=== PATIENT | male | born 1945 | race Caucasian/White ===

== ENCOUNTER 2018-11-01 13:39 | Emergency (ER) | payer MEDICARE ==
[2018-11-01 14:15] VITALS: BP 120/64
--- NOTE | 2018-11-01 14:21 | UC ---
Skin Complaint HPI - HPI Summary HPI Summary: 73 yo male presents with redness, pain, and swelling around nail of right 4th digit for the last 2 days. He poked it at home and had bleeding and clear drainage. Symptoms have continued. Denies fever or injury - History of Current Complaint Chief Complaint: UCSkin Stated Complaint: POSSIBLE INFECTION TO FINGER ON RIGHT HAND Hx Obtained From: Patient Onset/Duration: Sudden Onset Onset Severity: Mild Current Severity: Moderate Pain Intensity: 7 Pain Scale Used: 0-10 Numeric - Allergy/Home Medications Allergies/Adverse Reactions: Allergies Allergy/AdvReac Type Severity Reaction Status Date / Time No Known Allergies Allergy Verified 11/01/18 14:15 Home Medications: Home Medications Onabotulinumtoxina [Botox Cosmetic] 1 unit IM MONTHLY 11/01/18 [History Confirmed 11/01/18] Primidone 1 tab PO DAILY 11/01/18 [History Confirmed 11/01/18] Propranolol HCl [Inderal LA] 220 mg PO DAILY 11/01/18 [History Confirmed ] PMH/Surg Hx/FS Hx/Imm Hx Neurological History: Seizures - Surgical History Surgical History: Yes Surgery Procedure, Year, and Place: hernia right inguinal. left elbow tendon repair. detatched retina right eye. left eye bulging macula - Family History Known Family History: Positive: Non-Contributory - Social History Lives: With Family Alcohol Use: Occasionally Substance Use Type: None Smoking Status (MU): Light Every Day Tobacco Smoker Amount Used/How Often: less than 1ppd Household Exposure Type: Cigarettes Review of Systems All Other Systems Reviewed And Are Negative: Yes Constitutional: Positive: Negative Skin: Positive: Other - right finger nail redness/pain Respiratory: Positive: Negative Cardiovascular: Positive: Negative Neurovascular: Positive: Negative Neurological: Positive: Negative Psychological: Positive: Negative Physical Exam - Summary Physical Exam Summary: GENERAL: NAD. WDWN. No pain distress. SKIN: RIGHT 4th digit: at the radial aspect of the nail-skin fold there is a 1mm scab with mild erythema and edema. TTP. No drainage or streaking. NECK: Supple. Nontender. No lymphadenopathy. CHEST: No accessory muscle use. Breathing comfortably and in no distress. CV: Pulses intact. Cap refill <2seconds NEURO: Alert. PSYCH: Age appropriate behavior. Triage Information Reviewed: Yes Vital Signs: Initial Vital Signs Temp 98 F 11/01/18 14:08 Pulse 69 11/01/18 14:08 Resp 18 11/01/18 14:08 BP 120/64 11/01/18 14:08 Pulse Ox 99 11/01/18 14:08 Vital Signs Reviewed: Yes Course/Dx - Course Course Of Treatment: Paronychia right 4th digit - Diagnoses Provider Diagnosis: Paronychia Discharge - Sign-Out/Discharge Documenting (check all that apply): Patient Departure All imaging exams completed and their final reports reviewed: No Studies - Discharge Plan Condition: Stable Disposition: HOME Prescriptions: Cephalexin CAP* [Keflex CAP*] 500 mg PO BID #10 cap Patient Education Materials: Paronychia (ED) Referrals: Ada Camarillo MD [Primary Care Provider] - Additional Instructions: If you develop a fever, shortness of breath, chest pain, new or worsening symptoms - please call your PCP or go to the ED immediately. - Billing Disposition and Condition Condition: STABLE Disposition: Home
== END 2018-11-01 14:30 | disposition home or self-care (01) ==
LOC: UCEAST 13:39
DX: L03.011 Cellulitis of right finger (principal); F17.210 Nicotine dependence, cigarettes, uncomplicated
CPT/HCPCS: 99212; G0463